=== PATIENT | male | born 1960 | race African-American/Black ===

== ENCOUNTER → 2016-03-12 | Outpatient (CLI) | payer OTHER ==
[2016-03-12 15:17] LABS: MEAN CORPUSCULAR HEMOGLOBIN 32.1 pg (27.0-33.4); MEAN CORPUSCULAR HGB CONC 34.7 g/dL (32.0-36.0); MEAN CORPUSCULAR VOLUME 93 fl (80-97); RED BLOOD COUNT 2.81 10^6/uL (4.35-5.55); RED CELL DISTRIBUTION WIDTH 13.8 % (11.5-14.0); WHITE BLOOD COUNT 1.9 10^3/uL (4.0-10.5)
[2016-03-12 16:00] LABS: BASOPHILS % (MANUAL) 2 % (0-2); EOSINOPHILS % (MANUAL) 0 % (0-6); LYMPHOCYTES % (MANUAL) 46 % (13-45); TOTAL CELLS COUNTED 50
[2016-03-12 16:02] LABS: BURR CELLS SLIGHT; OVALOCYTES SLIGHT; POIKILOCYTOSIS SLIGHT; SMUDGE CELLS PRESENT
[2016-03-12 16:03] LABS: TEAR DROP CELLS 1+
== END ==
LOC: OD 14:21
PROVIDERS: ATTEND Internal Medicine Nephrology
DX: D61.818 Other pancytopenia (principal)
CPT/HCPCS: 36415; 85025